=== PATIENT | female | born 1975 | race African-American/Black ===

== ENCOUNTER 2021-02-27 14:24 | Inpatient (IN) ==
[2021-02-27 19:42] LABS: Basophils % 0.2 % (0.0-0.8); Hematocrit 40.6 VOL% (35.7-47.0); Hemoglobin 12.7 GM/DL (12.0-16.0); Immature Granulocytes Absolute 0.05 #; Lymphocytes # 1.8 10*3/uL (1.4-4.0); Lymphocytes % 35.8 % (21.3-54.2); Mean Corpuscular HGB Conc 31.3 GM/DL (32-36); Mean Corpuscular Volume 92.1 FL (87-102); Mean Platelet Volume 11.1 FL (9.6-12.0); Monocytes % 3.9 % (1.7-12.7); Neutrophils % 59.1 % (38.7-73.9); Platelet Count 222 T/CUMM (130-400); Red Blood Count 4.41 MC/CUMM (3.8-5.5); Red Cell Distribution Width 13.2 % (9.3-17.3); White Blood Count 5.1 T/CUMM (4-12)
[2021-02-27 19:53] LABS: Bilirubin,Total 0.5 MG/DL (0.20-1.00); Calcium 8.9 MG/DL (8.5-10.1); Osmolality,Calculated 283.8 MOS/KG (273-304); Potassium 3.4 MMOL/L (3.5-5.1); Total Protein 9.3 G/DL (6.4-8.2)
[2021-02-27 20:17] LABS: Lymphocytes 30 % (20-55); Platelet Estimate Adequate; Segmented Neutrophils 64 % (50-85); Total Cells Counted 100
[2021-02-27] MEDS ORDERED: AZITHROMYCIN INJ 500 MG in SODIUM CHLORIDE 0.9% 250 ML IV ONE (21:29)
[2021-02-27] MEDS ORDERED: MELATONIN 3 MG TABLET PO PRN (21:29)
[2021-02-27] MEDS ORDERED: DEXAMETHASONE 10 MG/1 ML VIAL IV STA (21:32)
[2021-02-27] MEDS: ENOXAPARIN 40 MG/0.4 ML SYRINGE SUBCUT SCH (21:52)
[2021-02-28] MEDS ORDERED: hydrALAZINE 20 MG/1 ML VIAL IV PRN (00:01)
[2021-02-28] MEDS ORDERED: GLUCAGON 1 MG VIAL IM PRN (00:01)
[2021-02-28] MEDS ORDERED: DOCUSATE SODIUM 100 MG CAPSULE PO PRN (00:01)
[2021-02-28] MEDS ORDERED: ACETAMINOPHEN 325 MG TABLET PO PRN (00:01)
[2021-02-28] MEDS ORDERED: DEXTROSE 50% 25 GM/50 ML VIAL IV PRN (00:01)
[2021-02-28] MEDS ORDERED: ONDANSETRON 4 MG/2 ML VIAL IV PRN (00:01)
[2021-02-28] MEDS ORDERED: MAGNESIUM SULF RIDER 4 GM/100 ML PREMIX IV PRN (00:05)
[2021-02-28] MEDS ORDERED: MAGNESIUM SULF RIDER 2 GM/50 ML PREMIX IV PRN (00:05)
[2021-02-28] MEDS ORDERED: POTASSIUM CHLORIDE 20 MEQ TABLET PO PRN (00:05)
[2021-02-28] MEDS: ASCORBIC ACID 500 MG TABLET PO SCH ×3 (00:10→20:51)
[2021-02-28] MEDS: FAMOTIDINE 20 MG TABLET PO SCH ×3 (00:10→20:51)
[2021-02-28] MEDS ORDERED: SODIUM CHLORIDE 0.9% 1,000 ML IV SCH (00:30)
[2021-02-28 04:15] LABS: Basophils % 0.2 % (0.0-0.8); Hematocrit 37.8 VOL% (35.7-47.0); Hemoglobin 11.7 GM/DL (12.0-16.0); Immature Granulocytes % 0.9 %; Immature Granulocytes Absolute 0.04 #; Lymphocytes # 0.7 10*3/uL (1.4-4.0); Lymphocytes % 15.9 % (21.3-54.2); Mean Corpuscular Volume 93.1 FL (87-102); Mean Platelet Volume 10.9 FL (9.6-12.0); Platelet Count 191 T/CUMM (130-400); Red Blood Count 4.06 MC/CUMM (3.8-5.5); Red Cell Distribution Width 13.2 % (9.3-17.3); White Blood Count 4.4 T/CUMM (4-12)
[2021-02-28 04:46] LABS: Albumin 2.6 G/DL (3.4-5.0); Bilirubin,Total 0.5 MG/DL (0.20-1.00); Calcium 8.5 MG/DL (8.5-10.1); Osmolality,Calculated 291.7 MOS/KG (273-304); Potassium 3.9 MMOL/L (3.5-5.1); Total Protein 8.6 G/DL (6.4-8.2)
[2021-02-28 06:18] LABS: Ferritin 201.5 ng/ml (8-252)
[2021-02-28] MEDS: ALBUTEROL INHALER 18 GM INH SCH ×3 (08:08→21:02)
[2021-02-28] MEDS: INSULIN LISPRO 100 UNIT/ML SUBCUT SCH ×4 (08:08→21:02)
[2021-02-28] MEDS ORDERED: REMDESIVIR 200 MG in SODIUM CHLORIDE 0.9% 210 ML IV ONE (09:00)
[2021-02-28] MEDS: CETIRIZINE 10 MG TABLET PO SCH (09:46)
[2021-02-28] MEDS: ZINC GLUCONATE 50 MG TABLET PO SCH (09:46)
[2021-02-28] MEDS: AZITHROMYCIN 250 MG TABLET PO SCH (09:46)
[2021-02-28] MEDS: DEXAMETHASONE 4 MG/1 ML VIAL IV SCH (09:46)
[2021-02-28] MEDS: CHOLECALCIFEROL 1,000 UNIT TABLET PO SCH (09:46)
[2021-02-28] MEDS: INSULIN GLARGINE 100 UNIT/ML SUBCUT SCH (13:48)
[2021-02-28] MEDS: ENOXAPARIN 40 MG/0.4 ML SYRINGE SUBCUT SCH (20:51)
[2021-03-01] MEDS: ALBUTEROL INHALER 18 GM INH SCH ×4 (00:45→21:00)
[2021-03-01 03:16] LABS: Basophils % 0.1 % (0.0-0.8); Hematocrit 37.5 VOL% (35.7-47.0); Hemoglobin 11.6 GM/DL (12.0-16.0); Immature Granulocytes % 1.1 %; Immature Granulocytes Absolute 0.08 #; Mean Corpuscular HGB Conc 30.9 GM/DL (32-36); Mean Corpuscular Volume 92.6 FL (87-102); Mean Platelet Volume 11.4 FL (9.6-12.0); Monocytes % 4.9 % (1.7-12.7); Neutrophils % 79.9 % (38.7-73.9); Platelet Count 252 T/CUMM (130-400); Red Blood Count 4.05 MC/CUMM (3.8-5.5); White Blood Count 7.3 T/CUMM (4-12)
[2021-03-01 03:44] LABS: Albumin 2.4 G/DL (3.4-5.0); Calcium 8.9 MG/DL (8.5-10.1); Osmolality,Calculated 287.8 MOS/KG (273-304); Potassium 4.3 MMOL/L (3.5-5.1); Total Protein 8.3 G/DL (6.4-8.2)
[2021-03-01 03:46] LABS: Ferritin 254.2 ng/ml (8-252)
[2021-03-01 06:23] LABS: Microcytosis 1+; Platelet Estimate Decreased
[2021-03-01] MEDS: DEXAMETHASONE 4 MG/1 ML VIAL IV SCH (08:33)
[2021-03-01] MEDS: CETIRIZINE 10 MG TABLET PO SCH (08:34)
[2021-03-01] MEDS: CHOLECALCIFEROL 1,000 UNIT TABLET PO SCH (08:34)
[2021-03-01] MEDS: AZITHROMYCIN 250 MG TABLET PO SCH (08:34)
[2021-03-01] MEDS: FAMOTIDINE 20 MG TABLET PO SCH ×2 (08:34→20:59)
[2021-03-01] MEDS: ZINC GLUCONATE 50 MG TABLET PO SCH (08:34)
[2021-03-01] MEDS: ASCORBIC ACID 500 MG TABLET PO SCH ×2 (08:34→20:59)
[2021-03-01] MEDS: REMDESIVIR 100 MG in SODIUM CHLORIDE 0.9% 100 ML IV SCH (09:06)
[2021-03-01] MEDS: INSULIN GLARGINE 100 UNIT/ML SUBCUT SCH (09:06)
[2021-03-01] MEDS: INSULIN LISPRO 100 UNIT/ML SUBCUT SCH ×4 (09:07→21:02)
[2021-03-01] MEDS: ENOXAPARIN 40 MG/0.4 ML SYRINGE SUBCUT SCH (21:01)
[2021-03-02] MEDS: ALBUTEROL INHALER 18 GM INH SCH ×4 (01:02→19:15)
[2021-03-02 07:11] LABS: Calcium 8.9 MG/DL (8.5-10.1); Potassium 4.2 MMOL/L (3.5-5.1)
[2021-03-02 07:27] LABS: Ferritin 245.5 ng/ml (8-252)
[2021-03-02] MEDS ORDERED: INSULIN GLARGINE 100 UNIT/ML SUBCUT SCH (09:00)
[2021-03-02] MEDS: DEXAMETHASONE 4 MG/1 ML VIAL IV SCH (09:14)
[2021-03-02] MEDS: INSULIN LISPRO 100 UNIT/ML SUBCUT SCH ×4 (09:14→21:30)
[2021-03-02] MEDS: FAMOTIDINE 20 MG TABLET PO SCH ×2 (09:15→21:25)
[2021-03-02] MEDS: CHOLECALCIFEROL 1,000 UNIT TABLET PO SCH (09:15)
[2021-03-02] MEDS: ZINC GLUCONATE 50 MG TABLET PO SCH (09:15)
[2021-03-02] MEDS: AZITHROMYCIN 250 MG TABLET PO SCH (09:15)
[2021-03-02] MEDS: CETIRIZINE 10 MG TABLET PO SCH (09:15)
[2021-03-02] MEDS: ASCORBIC ACID 500 MG TABLET PO SCH ×2 (09:15→21:25)
[2021-03-02 11:38] LABS: Basophils % 0.2 % (0.0-0.8); Hematocrit 36.5 VOL% (35.7-47.0); Hemoglobin 11.7 GM/DL (12.0-16.0); Immature Granulocytes % 1.1 %; Immature Granulocytes Absolute 0.07 #; Lymphocytes # 0.8 10*3/uL (1.4-4.0); Mean Corpuscular HGB Conc 32.1 GM/DL (32-36); Mean Corpuscular Volume 92.4 FL (87-102); Mean Platelet Volume 10.3 FL (9.6-12.0); Monocytes % 5.9 % (1.7-12.7); Neutrophils % 79.8 % (38.7-73.9); Platelet Count 290 T/CUMM (130-400); Red Blood Count 3.95 MC/CUMM (3.8-5.5); White Blood Count 6.2 T/CUMM (4-12)
[2021-03-02 12:53] LABS: Lymphocytes 10 % (20-55); Segmented Neutrophils 83 % (50-85); Total Cells Counted 100
[2021-03-02 12:54] LABS: Giant Platelets Few; Platelet Estimate Normal; Polychromasia Slight
[2021-03-02] MEDS: REMDESIVIR 100 MG in SODIUM CHLORIDE 0.9% 100 ML IV SCH (12:55)
[2021-03-02] MEDS: ENOXAPARIN 40 MG/0.4 ML SYRINGE SUBCUT SCH (21:23)
[2021-03-03] MEDS: ALBUTEROL INHALER 18 GM INH SCH ×4 (01:40→18:20)
[2021-03-03 06:38] LABS: Basophils % 0.2 % (0.0-0.8); Hematocrit 36.7 VOL% (35.7-47.0); Hemoglobin 11.8 GM/DL (12.0-16.0); Immature Granulocytes % 0.7 %; Immature Granulocytes Absolute 0.03 #; Lymphocytes # 1.2 10*3/uL (1.4-4.0); Lymphocytes % 27.9 % (21.3-54.2); Mean Corpuscular HGB Conc 32.2 GM/DL (32-36); Mean Corpuscular Volume 92.2 FL (87-102); Mean Platelet Volume 10.3 FL (9.6-12.0); Monocytes % 7.7 % (1.7-12.7); Neutrophils % 63.5 % (38.7-73.9); Platelet Count 314 T/CUMM (130-400); Red Blood Count 3.98 MC/CUMM (3.8-5.5); Red Cell Distribution Width 12.7 % (9.3-17.3); White Blood Count 4.3 T/CUMM (4-12)
[2021-03-03 07:06] LABS: Calcium 8.7 MG/DL (8.5-10.1); Osmolality,Calculated 278.8 MOS/KG (273-304); Potassium 3.8 MMOL/L (3.5-5.1)
[2021-03-03 07:08] LABS: Lymphocytes 23 % (20-55); Platelet Estimate Adequate; Segmented Neutrophils 67 % (50-85); Total Cells Counted 100
[2021-03-03 07:09] LABS: Hypochromasia 1+; Microcytosis 1+
[2021-03-03 07:19] LABS: Ferritin 174.6 ng/ml (8-252)
[2021-03-03] MEDS: INSULIN LISPRO 100 UNIT/ML SUBCUT SCH ×4 (09:42→20:26)
[2021-03-03] MEDS: INSULIN GLARGINE 100 UNIT/ML SUBCUT SCH (09:42)
[2021-03-03] MEDS: FAMOTIDINE 20 MG TABLET PO SCH ×2 (09:43→20:27)
[2021-03-03] MEDS: CHOLECALCIFEROL 1,000 UNIT TABLET PO SCH (09:43)
[2021-03-03] MEDS: CETIRIZINE 10 MG TABLET PO SCH (09:43)
[2021-03-03] MEDS: AZITHROMYCIN 250 MG TABLET PO SCH (09:43)
[2021-03-03] MEDS: ZINC GLUCONATE 50 MG TABLET PO SCH (09:43)
[2021-03-03] MEDS: ASCORBIC ACID 500 MG TABLET PO SCH ×2 (09:43→20:27)
[2021-03-03] MEDS: DEXAMETHASONE 4 MG/1 ML VIAL IV SCH (09:43)
[2021-03-03] MEDS: REMDESIVIR 100 MG in SODIUM CHLORIDE 0.9% 100 ML IV SCH (12:32)
[2021-03-03] MEDS: ENOXAPARIN 40 MG/0.4 ML SYRINGE SUBCUT SCH (20:31)
[2021-03-04] MEDS: ALBUTEROL INHALER 18 GM INH SCH ×3 (00:29→13:58)
[2021-03-04 06:26] LABS: Hematocrit 36.6 VOL% (35.7-47.0); Hemoglobin 11.5 GM/DL (12.0-16.0); Immature Granulocytes % 1.5 %; Immature Granulocytes Absolute 0.08 #; Lymphocytes # 1.4 10*3/uL (1.4-4.0); Lymphocytes % 27.1 % (21.3-54.2); Mean Corpuscular HGB Conc 31.4 GM/DL (32-36); Mean Corpuscular Volume 92.7 FL (87-102); Mean Platelet Volume 10.6 FL (9.6-12.0); Monocytes % 8.3 % (1.7-12.7); Neutrophils % 63.1 % (38.7-73.9); Platelet Count 334 T/CUMM (130-400); Red Blood Count 3.95 MC/CUMM (3.8-5.5); Red Cell Distribution Width 12.7 % (9.3-17.3); White Blood Count 5.2 T/CUMM (4-12)
[2021-03-04 06:47] LABS: Platelet Estimate Adequate
[2021-03-04 06:57] LABS: Ferritin 146.9 ng/ml (8-252)
[2021-03-04 07:40] LABS: Calcium 8.7 MG/DL (8.5-10.1); Osmolality,Calculated 283.5 MOS/KG (273-304); Potassium 3.8 MMOL/L (3.5-5.1)
[2021-03-04] MEDS: INSULIN LISPRO 100 UNIT/ML SUBCUT SCH ×3 (08:57→18:15)
[2021-03-04] MEDS: INSULIN GLARGINE 100 UNIT/ML SUBCUT SCH (08:57)
[2021-03-04] MEDS: FAMOTIDINE 20 MG TABLET PO SCH (08:58)
[2021-03-04] MEDS: CETIRIZINE 10 MG TABLET PO SCH (08:58)
[2021-03-04] MEDS: CHOLECALCIFEROL 1,000 UNIT TABLET PO SCH (08:58)
[2021-03-04] MEDS: ZINC GLUCONATE 50 MG TABLET PO SCH (08:58)
[2021-03-04] MEDS: ASCORBIC ACID 500 MG TABLET PO SCH (08:58)
[2021-03-04] MEDS: DEXAMETHASONE 4 MG/1 ML VIAL IV SCH (08:58)
[2021-03-04] MEDS: REMDESIVIR 100 MG in SODIUM CHLORIDE 0.9% 100 ML IV SCH (09:21)
[2021-03-04 18:42] VITALS: BP 128/72
[2021-03-05] MEDS ORDERED: glipiZIDE 5 MG TABLET PO SCH (07:30)
[2021-03-05] MEDS ORDERED: RIVAROXABAN 10 MG TABLET PO SCH (17:00)
== END 2021-03-04 18:45 | disposition home or self-care (01) | DRG 177 ==
LOC: N.ED 14:24 → N.EDINP 14:24 → SUATTDRO 21:26 → N.2E 02-28 18:10
PROVIDERS: ADMIT Internal Medicine; ATTEND Internal Medicine